=== PATIENT | male | born 1950 ===

== ENCOUNTER 2022-04-09 06:05 | Day surgery (SDC) | payer OTHER ==
[~2022-04-09] VITALS: Ht 170.2 cm; Wt 81.6 kg
[~2022-04-09 06:05] MED LIST: COZAAR50 MG PO; CRESTOR5 MG PO; FLECAINIDE ACE150 MG PO; OPSUMIT10 MG PO; XARELTO20 MG PO; ZETIA10 MG PO
[2022-04-09] MEDS ORDERED: PERCOCET 5-3251 EACH PO (09:35)
== END 2022-04-09 18:05 | disposition home or self-care (01) ==
LOC: CIR.AMB 06:05
PROVIDERS: ATTEND Surgery
DX: K64.8 Other hemorrhoids (principal); K64.4 Residual hemorrhoidal skin tags; K62.5 Hemorrhage of anus and rectum; K62.89 Other specified diseases of anus and rectum; Z88.5 Allergy status to narcotic agent; Z20.822 Contact with and (suspected) exposure to COVID-19; I10 Essential (primary) hypertension; I27.20 Pulmonary hypertension, unspecified